=== PATIENT | female | born 1990 | race Two or more races ===

== ENCOUNTER 2020-04-21 14:18 | Outpatient (CLI) | payer OTHER ==
[2020-04-21] MEDS ORDERED: FLONASE16 GM NASAL (14:37)
[2020-04-21] MEDS ORDERED: AUGMENTIN XR 11 EACH PO (14:37)
[2020-04-21] MEDS ORDERED: NEILMED SINUS1 EACH NASAL (14:38)
[2020-04-21] MEDS ORDERED: ZYRTEC10 M3 PO (14:38)
[2020-04-21] MEDS ORDERED: MEDROLPACK PO (14:52)
[2020-04-21] MEDS ORDERED: MECLIZINE HCL12.5 MG PO (14:52)
== END 2020-04-21 14:30 | disposition home or self-care (01) ==
LOC: OFIC 805 14:18
PROVIDERS: ATTEND Otolaryngology
DX: J30.89 Other allergic rhinitis (principal); H66.93 Otitis media, unspecified, bilateral

== ENCOUNTER 2020-05-19 10:53 | Outpatient (CLI) | payer OTHER ==
[~2020-05-19 10:53] MED LIST: AUGMENTIN XR 11 EACH PO; FLONASE16 GM NASAL; MECLIZINE HCL12.5 MG PO; MEDROLPACK PO; NEILMED SINUS1 EACH NASAL; ZYRTEC10 M3 PO
== END 2020-05-19 11:20 | disposition home or self-care (01) ==
LOC: OFIC 805 10:53
PROVIDERS: ATTEND Otolaryngology
DX: H66.93 Otitis media, unspecified, bilateral (principal)

== ENCOUNTER 2020-07-20 11:38 | Outpatient (CLI) | payer OTHER | END 2020-07-20 12:30 | disposition home or self-care (01) | LOC: OFIC 805 11:38 | PROVIDERS: ATTEND Otolaryngology | DX: J30.89 Other allergic rhinitis (principal); H65.01 Acute serous otitis media, right ear ==

== ENCOUNTER 2023-03-21 09:24 | Outpatient (CLI) | payer OTHER | END 2023-03-21 09:40 | disposition home or self-care (01) | LOC: RX STUDY 09:24 | PROVIDERS: ATTEND Obstetrics & Gynecology | DX: N93.9 Abnormal uterine and vaginal bleeding, unspecified (principal); N97.0 Female infertility associated with anovulation; E16.2 Hypoglycemia, unspecified; J45.909 Unspecified asthma, uncomplicated; Z09 Encounter for follow-up examination after completed treatment for conditions other than malignant neoplasm ==